=== PATIENT | female | born 1940 | race Caucasian/White ===

== ENCOUNTER 2022-02-18 16:16 | Emergency (ER) | payer OTHER ==
[2022-02-18 16:53] LABS: HEMOGLOBIN 12.7 gm/dl (12.3-15.3); RED BLOOD COUNT 3.85 M/UL (4.00-5.10); WHITE BLOOD COUNT 11.6 K/UL (4.5-11.0)
[2022-02-18 17:20] LABS: BUN/CREATININE RATIO 16 (0-10)
== END 2022-02-18 21:30 | disposition home or self-care (01) ==
LOC: ER1 16:16
PROVIDERS: Student in an Organized Health Care Education/Training Program
DX: R07.9 Chest pain, unspecified (principal); K86.89 Other specified diseases of pancreas; E11.65 Type 2 diabetes mellitus with hyperglycemia; E78.5 Hyperlipidemia, unspecified; C50.919 Malignant neoplasm of unspecified site of unspecified female breast; R74.8 Abnormal levels of other serum enzymes; I10 Essential (primary) hypertension; K21.9 Gastro-esophageal reflux disease without esophagitis; Z88.0 Allergy status to penicillin; Z88.8 Allergy status to other drugs, medicaments and biological substances; Z88.7 Allergy status to serum and vaccine
CPT/HCPCS: 71045; 80053; 82550; 82553; 83690; 84484; 85025; 85379; 93005; 99285; Q9967

== ENCOUNTER → 2022-03-09 | Outpatient (CLI) | payer OTHER | LOC: CT 13:50 | DX: K86.89 Other specified diseases of pancreas (principal); R10.9 Unspecified abdominal pain; R93.89 Abnormal findings on diagnostic imaging of other specified body structures; E11.9 Type 2 diabetes mellitus without complications | CPT/HCPCS: 74170; Q9967 ==

== ENCOUNTER → 2022-03-30 | Outpatient (CLI) | payer OTHER | LOC: LAB 09:45 | DX: Z20.822 Contact with and (suspected) exposure to COVID-19 (principal) | CPT/HCPCS: U0002 ==